=== PATIENT | male | born 1990 | race Caucasian/White ===

== ENCOUNTER 2019-10-07 10:40 | Emergency (ER) | payer OTHER ==
--- NOTE | 2019-10-07 10:56 | ED ---
HPI Chest Pain - HPI Summary HPI Summary: 29-year-old male with no significant past medical history presents to emergency department today complaining of 5 out of 10 chest "pressure" which is on the left anterior chest. She states the symptoms began last night and are accompanied with nausea and vomiting. He states he's had chest pain from anxiety in the past but this is worse than usual. He endorses recent travel with a 4 [address] ride from [place] to [place] however he denies recent surgery or immobilization. He denies tobacco use, recreational drug use but endorses having "2 glasses of wine with dinner last night". He denies fever, shortness of breath, cough, lightheadedness, pain with urination, rash. - History of Current Complaint Chief Complaint: EDChestPainROMI Time Seen by Provider: 10/07/19 10:56 Hx Obtained From: Patient Onset/Duration: Started Hours Ago Timing: Constant Initial Severity: Mild Current Severity: Mild Pain Intensity: 6 Pain Scale Used: 0-10 Numeric Chest Pain Location: Left Anterior Character: Pressure/Squeezing Alleviating Factor(s): Rest Associated Signs and Symptoms: Positive: Chest Pain, Anxiety, Nausea, Vomiting. Negative: Recent Stress, Shortness of Breath, Fever, Lightheadedness, Cough, Abdominal Pain - Allergy/Home Medications Allergies/Adverse Reactions: Allergies Allergy/AdvReac Type Severity Reaction Status Date / Time No Known Allergies Allergy Verified 10/07/19 12:02 PMH/Surg Hx/FS Hx/Imm Hx Infectious Disease History: No Infectious Disease History: Denies: Traveled Outside the in Last 30 Days Review of Systems Constitutional: Negative Eyes: Negative ENT: Negative Positive: Chest Pain Respiratory: Negative Positive: Vomiting, Nausea. Negative: Abdominal Pain, Diarrhea Genitourinary: Negative Musculoskeletal: Negative Skin: Negative Neurological: Negative Positive: Anxious All Other Systems Reviewed And Are Negative: Yes Physical Exam Triage Information Reviewed: Yes Vital Signs On Initial Exam: Initial Vitals Temp Pulse Resp BP Pulse Ox 99.0 F 107 16 148/82 98 10/07/19 10:43 10/07/19 10:43 10/07/19 10:43 10/07/19 10:43 10/07/19 10:43 Vital Signs Reviewed: Yes Appearance: Positive: Well-Appearing, No Pain Distress, Well-Nourished Skin: Positive: Warm, Skin Color Reflects Adequate Perfusion Eyes: Positive: EOMI, ERIC ENT: Positive: Hearing grossly normal Respiratory/Lung Sounds: Positive: Clear to Auscultation, Breath Sounds Present Cardiovascular: Positive: RRR, S1, S2 Abdomen Description: Positive: Nontender, Soft Bowel Sounds: Positive: Present Neurological: Positive: Sensory/Motor Intact, Alert, Oriented to Person Place, Time, Normal Gait, Speech Normal Psychiatric: Positive: Normal AVPU Assessment: Alert Procedures - Sedation Patient Received Moderate/Deep Sedation with Procedure: No Diagnostics - Vital Signs Vital Signs Temp Pulse Resp BP Pulse Ox 10/07/19 10:43 99.0 F 107 16 148/82 98 - Laboratory Result Diagrams: 10/07/19 10:57 10/07/19 10:57 Lab Statement: Any lab studies that have been ordered have been reviewed, and results considered in the medical decision making process. Chest Pain Course/Dx - Course Course Of Treatment: Patient was evaluated in the emergency department today for chest pain. The patient was seen and examined. Vitals were stable and he is afebrile. EKG was done promptly which showed normal sinus rhythm at a rate of [address] bpm. No evidence of ST elevation or ischemia noted. Normal axis with normal OR and QTc interval. Laboratory studies returned showing mild leukocytosis of 11.7 with a neutrophil count of 9.6 which is slightly elevated. With acidosis is likely due to recurrent vomiting. There is no significant electrolyte abnormality however there is an elevated anion gap at 14, likely due to hypochloremia from vomiting. Total bilirubin is 1.9 however there is no evidence of hepatic or obstructive pathology based on normal alkaline phosphatase and liver function tests. Initial troponin returned at 0.00. Chest xray shows no evidence of acute cardiopulmonary pathology. HEART score is 0. There is no evidence of acute medical pathology requiring immediate intervention causing his symptoms. He is to follow-up at [facility] for further evaluation and management of his symptoms. he was given a prescription for Zofran and Maalox plus for his nausea. He agrees with this plan. - Chest Pain Differential Diagnosis/HQI/PQRI: Acute OK, ACS, Angina, Aortic Aneurysm, Chest Wall, Other: - pancreatitis, GERD - Diagnoses Provider Diagnoses: Chest pain Discharge ED - Sign-Out/Discharge Documenting (check all that apply): Patient Departure - Discharge Plan Condition: Stable Disposition: HOME Prescriptions: Al Hydrox/Mg Hydrox/Simet LIQ* [Maalox Plus*] 30 ml PO Q4H PRN #30 udc PRN Reason: Pain - Mild Al Hydrox/Mg Hydrox/Simet LIQ* [Maalox Plus*] 30 ml PO Q4H PRN #900 udc PRN Reason: Pain - Mild Ondansetron ODT TAB* [Zofran 4 MG Odt TAB*] 4 mg PO Q6H PRN #12 tab.odt PRN Reason: Nausea Ondansetron ODT TAB* [Zofran 4 MG Odt TAB*] 4 mg PO Q6H PRN #12 tab.odt PRN Reason: Nausea Patient Education Materials: Chest Pain (ED) Referrals: [facility] - Iban MAYEN [Primary Care Provider] - 2 Days Additional Instructions: You were seen in the ER today for chest pain. I am not sure what is causing your pain, but please follow up with [facility] clinic on Wednesday for further evaluation and management as cardiac cause cannot be ruled out. I sent medication to [facility] pharmacy for nausea which you may take as needed to increase by mouth intake. Please return to the emergency department immediately if you develope any new or worsening symptoms. - Billing Disposition and Condition Condition: STABLE Disposition: Home
[2019-10-07 11:05] LABS: ABS Basophils 0.1 10^3/ul (0-0.2); ABS Lymphocytes 1.1 10^3/ul (1.0-4.8); ABS Monocytes 0.8 10^3/ul (0-0.8); ABS Neutrophils 9.6 10^3/ul (1.5-7.7); Eosinophil % 0.3 %; Hematocrit 49 % (42-52); Hemoglobin 17.7 g/dL (14.0-18.0); Lymphocyte % 9.4 %; Mean Corpuscular HGB Conc 36 g/dL (31-36); Mean Corpuscular Hemoglobin 33 pg (27-31); Mean Corpuscular Volume 91 fL (80-94); Mean Platelet Volume 7.6 fL (7.4-10.4); Platelet Count 261 10^3/uL (150-450); Red Blood Count 5.43 10^6 /uL (4.18-5.48); Red Cell Distribution Width 12 % (10-15); White Blood Count 11.7 10^3/uL (3.5-10.8)
[2019-10-07 11:09] LABS: INR 1.12 (0.82-1.09)
[2019-10-07 11:23] LABS: ALT 17 U/L (7-52); AST 20 U/L (13-39); Albumin 5.6 g/dL (3.2-5.2); Albumin/Globulin Ratio 2.2 (1-3); Alkaline Phosphatase 47 U/L (34-104); Anion Gap 14 mmol/L (2-11); Blood Urea Nitrogen 13 mg/dL (6-24); CO2 Carbon Dioxide 25 mmol/L (22-32); Calcium 10.8 mg/dL (8.6-10.3); Chloride 98 mmol/L (101-111); EGFR African American 108.5 (>60); EGFR Non-African American 89.6 (>60); Globulin 2.6 g/dL (2-4); Glucose 121 mg/dL (70-100); Potassium 3.9 mmol/L (3.5-5.0); Sodium 137 mmol/L (135-145); Total Protein 8.2 g/dL (6.4-8.9)
[2019-10-07] MEDS ORDERED: NS 0.9% 1000 ML** 1,000 ML IV ONE (12:56)
[2019-10-07 13:13] VITALS: BP 127/85
[2019-10-07 13:37] LABS: Alcohol < 10 mg/dL (<10)
== END 2019-10-07 13:40 | disposition home or self-care (01) ==
LOC: ED 10:40
DX: R07.9 Chest pain, unspecified (principal)
CPT/HCPCS: 36415; 71046; 80053; 80320; 83690; 84484; 85025; 85610; 93005; 99283; G0480